=== PATIENT | female | born 1990 | race Caucasian/White ===

== ENCOUNTER 2016-08-19 11:08 | Emergency (ER) | payer SELFPAY ==
[2016-08-19 11:09] VITALS: BMI 28.5
[2016-08-19 11:21] VITALS: RESP 18
[2016-08-19] MEDS ORDERED: cefTRIAXone (Rocephin) 250 mg Inj IM STA (12:38)
[2016-08-19 12:47] LABS: HCG,QUALITATIVE URINE NEGATIVE (NEGATIVE)
[2016-08-19 12:49] LABS: SQUAMOUS EPITHIAL 7 /hpf (0-5); URINE BACTERIA RARE (<OCC); URINE BILIRUBIN NEGATIVE (NEGATIVE); URINE BLOOD 1+ (NEGATIVE); URINE CLARITY Hazy (Clear); URINE COLOR Yellow (YELLOW); URINE GLUCOSE (UA) NORMAL (Normal); URINE LEUKOCYTE ESTERASE TRACE Leu/uL (Negative); URINE NITRATE NEGATIVE (NEGATIVE); URINE PROTEIN NEGATIVE (NEGATIVE); URINE UROBILINOGEN NORMAL mg/dL (0.2-1.0)
--- NOTE | 2016-08-19 13:01 | C.PDOC ---
Time Seen by Provider: 08/19/16 11:42 Chief Complaint (Nursing): Female Genitourinary Past Medical History Vital Signs: Last Vital Signs Temp 98.1 F 08/19/16 11:17 Pulse 79 08/19/16 11:17 Resp 18 08/19/16 11:17 BP 115/70 08/19/16 11:17 Pulse Ox 97 08/19/16 11:17 - Medical History PMH: Gall Bladder Disease (cholecystectomy done) Surgical History: Cholecystectomy Family History: States: Unknown Family Hx - Social History Hx Tobacco Use: Yes Hx Alcohol Use: Yes Hx Substance Use: Yes - Immunization History Hx Tetanus Toxoid Vaccination: No Hx Influenza Vaccination: No Hx Pneumococcal Vaccination: No ED Course And Treatment O2 Sat by Pulse Oximetry: 97 Disposition Counseled Patient/Family Regarding: Diagnosis, Need For Followup - Disposition Referrals: [facility] at [facility] [Outside] Disposition: HOME/ ROUTINE Disposition Time: 13:15 Condition: STABLE Additional Instructions: FOLLOW UP WITH YOUR SIGNAL TOWER OPERATOR WITHIN 1 WEEK USE MEDICATION DIRECTED NO SEX X 1 WEEK HAVE SEXUAL PARTNER(S) TESTED/TREATED RETURN TO ER IF SYMPTOMS WORSEN Prescriptions: metroNIDAZOLE [Flagyl] 500 mg PO TID #14 tab Instructions: Cervicitis (ED) Print Language: HEBREW - POA Present On Arrival: None - Clinical Impression Clinical Impression: Vaginal discharge
--- NOTE | 2016-08-19 13:02 | C.PDOC ---
History Of Present Illness 26 y/o female presents to ED with complaints of foul odor and vaginal discharge x 3 weeks. Patient admits to recent unprotected sex with her ex boyfriend- is concerned for STDs. Patient denies vaginal bleeding, hematuria/dysuria, fever, abdominal pain. Time Seen by Provider: 08/19/16 11:42 Chief Complaint (Nursing): Female Genitourinary History Per: Patient History/Exam Limitations: no limitations Onset/Duration Of Symptoms: Persistent Current Symptoms Are (Timing): Still Present Severity: Mild Past Medical History Reviewed: Historical Data, Nursing Documentation, Vital Signs Vital Signs: Last Vital Signs Temp 97.6 F 08/19/16 13:20 Pulse 62 08/19/16 13:20 Resp 18 08/19/16 13:20 BP 143/88 08/19/16 13:20 Pulse Ox 99 08/19/16 13:20 - Medical History PMH: Gall Bladder Disease (cholecystectomy done) Surgical History: Cholecystectomy Family History: States: No Known Family Hx - Social History Hx Tobacco Use: Yes Hx Alcohol Use: Yes Hx Substance Use: Yes - Immunization History Hx Tetanus Toxoid Vaccination: No Hx Influenza Vaccination: No Hx Pneumococcal Vaccination: No Review Of Systems Except As Marked, All Systems Reviewed And Found Negative. Constitutional: Negative for: Fever, Chills Cardiovascular: Negative for: Chest Pain, Palpitations Respiratory: Negative for: Cough, Shortness of Breath Genitourinary: Positive for: Vaginal Discharge. Negative for: Dysuria, Hematuria, Vaginal Bleeding Skin: Negative for: Rash Physical Exam - Physical Exam Appears: Well, Non-toxic, No Acute Distress Oral Mucosa: Moist Cardiovascular: Rhythm Regular Respiratory: Normal Breath Sounds, No Rales, No Rhonchi, No Wheezing Gastrointestinal/Abdominal: Normal Exam, Bowel Sounds, Soft, No Tenderness Pelvic: Normal External Exam, Normal Bimanual Exam, No Vaginal Bleeding, Vaginal Discharge (Mild amount thick white discharge in vault), No Cervical Motion Tenderness, No Adnexal Tenderness Neurological/Psych: Oriented x3 ED Course And Treatment O2 Sat by Pulse Oximetry: 97 (RA) Pulse Ox Interpretation: Normal Progress Note: Patient given IM rocephin and PO azithromycin in ED. GC swab, UA , Upreg ordered. Rx given for Flagyl. Patient instructed to follow up with ob /industrial maintenance electrician within 1 week, to avoid sex x 1 week and have sexual partner(s) tested/ treated. She understands she should return to ED if symptoms worsen. Disposition Counseled Patient/Family Regarding: Studies Performed, Diagnosis, Need For Followup, Rx Given - Disposition Referrals: at [facility] [Outside] Disposition: HOME/ ROUTINE Disposition Time: 13:15 Condition: STABLE Additional Instructions: FOLLOW UP WITH YOUR VICE PRESIDENT OF FINANCE WITHIN 1 WEEK USE MEDICATION DIRECTED NO SEX X 1 WEEK HAVE SEXUAL PARTNER(S) TESTED/TREATED RETURN TO ER IF SYMPTOMS WORSEN Prescriptions: metroNIDAZOLE [Flagyl] 500 mg PO TID #14 tab Instructions: Cervicitis (ED) Print Language: CHINESE - Clinical Impression Clinical Impression: Vaginal discharge, Cervicitis - Scribe Statement The provider has reviewed the documentation as recorded by the Jacksonibdiana Painter All medical record entries made by the Kirill were at my direction and personally dictated by me. I have reviewed the chart and agree that the record accurately reflects my personal performance of the history, physical exam, medical decision making, and the department course for this patient. I have also personally directed, reviewed, and agree with the discharge instructions and disposition.
[2016-08-19 13:21] VITALS: BP 143/88; PULSE 62; TEMP 97.6
[2016-08-25 04:58] VITALS: O2SAT 97
== END 2016-08-19 13:22 | disposition home or self-care (01) ==
LOC: C.ER 11:08
DX: N72 Inflammatory disease of cervix uteri (principal)
CPT/HCPCS: 81001; 84703; 87491; 87591; 96372; 99284; J0696